=== PATIENT | male | born 1985 | race African-American/Black ===

== ENCOUNTER 2021-12-29 20:54 | Emergency (ER) | payer SELFPAY ==
[~2021-12-29] VITALS: Ht 172.7 cm; Wt 62.8 kg
[2021-12-29] MEDS ORDERED: SUCCINYLCHOLINE 200 MG/10 ML VIAL. ONE ×2 (21:00→23:28)
[2021-12-29] MEDS ORDERED: ROCURONIUM 50 MG/5 ML VIAL. ONE (21:00)
[2021-12-29] MEDS ORDERED: PROPOFOL 10,000 MCG/ML (20ML) VIAL IV ONE (21:00)
--- NOTE | 2021-12-29 21:01 | PHYS DOC ---
Adult General HPI HPI Patient is a 36-year-old male who presents via EMS after being called by PD finding the person outside laying on the ground rolling around yelling and screaming, confused and appearing intoxicated on something. Patient did run from police department and was tackled. On arrival to the ED, patient awake alert in no apparent distress however was talking gibberish in and out of some lucid moments. When asked about drug use he stated that he did all of the drugs today. Review of Systems Review of Systems Review of systems otherwise unremarkable except noted by HPI Physical Exam Physical Exam Constitutional: Well developed, well nourished, patient agitated, yelling, screaming and flailing all extremities, came in in restraints HENT: Contusion over right orbit, bilateral external ears normal, bilateral tympanic membranes normal, oropharynx moist, no oral exudates, nose normal. [] Eyes: Pupils equal and reactive at about 4 mm, some nystagmus likely secondary to ketamine, conjunctiva normal, no discharge. [] Neck: Normal range of motion, no tenderness, supple, no stridor. [] Cardiovascular: Sinus tachycardia Lungs & Thorax: Bilateral breath sounds clear to auscultation, no respiratory distress [] Abdomen: soft, no tenderness, no masses, no pulsatile masses. [] Skin: Warm, dry, no erythema, no rash. [] Back: No obvious injuries Extremities: no cyanosis, no clubbing, ROM intact, no edema. [] Neurologic: Patient is awake, yelling and screaming, flailing all extremities, at times almost appears lucid and will respond when talked to but usually nonsense, no focal deficits noted. [] EKG EKG [] Radiology/Procedures Radiology/Procedures [] Heart Score C/O Chest Pain: No Risk Factors: Risk Factors: DM, Current or recent (<one month) smoker, HTN, HLP, family history of CAD, obesity. Risk Scores: Risk Factors: DM, Current or recent (<one month) smoker, HTN, HLP, family history of CAD, obesity. Course & Med Decision Making Course & Med Decision Making Patient is a 36-year-old male brought in by EMS and PD after being found outside yelling and screaming, rolling around on the ground and acting confused or intoxicated Vital signs notable for sinus tachycardia, hypertension, afebrile, breathing room air. Physical exam noted above. Per family, patient is a heavy alcohol drinker drinking too many to count daily and has been for years and thinks he does some drugs on the side but is not sure. Patient immediately transferred to bed with restraints As Patient Was Yelling, Screaming, Agitated Trying to Grab and Swinging at EMS and Staff. Started using 5 mg doses of Versed in order to calm patient down as there is concern that he was going to hurt himself swinging and flailing all his extremities and the restraints as he was really trying or hurt somebody else. Several doses of Versed with no effect. Switch to ketamine in order to get patient calm enough to allow for medical management but even after several doses of ketamine patient still kicking and screaming and grabbing. Due to concern for patient safety and preventing him from producing self-harm or grabbing part hitting it ED staff patient was intubated for continued medication/medical management. IV fluid resuscitation ongoing, given antibiotics as well as patient technically has an elevated white count, was tachycardic and tachypneic so some sort of infection could be on the differential. Laboratory analysis notable for leukocytosis, elevated creatinine, anion gap. CT of the head and neck with no acute intracranial abnormality showing mildly displaced fracture of the right zygomatic arch and a nondisplaced left nasal bone fracture with no cervical spine osseous abnormalities. Discussed findings with patient's family. Recommended admission to [facility] for continued evaluation and treatment of his possible sepsis, intoxication versus withdrawal and ventilation management. Family grateful, verbalized understanding and agreed with plan of transfer and admission to [place]. Dragon Disclaimer Dragon Disclaimer This electronic medical record was generated, in whole or in part, using a voice recognition dictation system. Departure Departure: Impression: Primary Impression: Altered mental state Additional Impressions: Substance abuse Increased anion gap metabolic acidosis AARON (acute kidney injury) Zygomatic arch fracture Nasal bone fracture Disposition: 02 SHORT TERM HOSPITAL Admitting Physician: Katie Montejo Condition: STABLE Problem Qualifiers FORTINO WILEY MD Dec 29, 2021 21:01
[2021-12-29] MEDS ORDERED: MIDAZOLAM HCL PF 5 MG/5 ML VIAL. IV ONE ×6 (21:15→22:45)
[2021-12-29 21:32] LABS: BASO # 0.1 x10^3/uL (0.0-0.2); BASO % 1 % (0-3); EOS % 0 % (0-3); HEMATOCRIT 34.5 % (39.0-53.0); HEMOGLOBIN 11.7 g/dL (13.0-17.5); LYMPH # 0.6 x10^3/uL (1.0-4.8); LYMPH % 5 % (24-48); MEAN CORPUSCULAR HEMOGLOBIN 32 pg (25-35); MEAN CORPUSCULAR HGB CONC 34 g/dL (31-37); MEAN CORPUSCULAR VOLUME 94 fL (79-100); MONO % 8 % (0-9); NEUT # 10.3 x10^3uL (1.8-7.7); NEUT % 86 % (31-73); PLATELET COUNT 181 x10^3/uL (140-400); RED BLOOD COUNT 3.66 x10^6/uL (4.30-5.70); RED CELL DISTRIBUTION WIDTH 13.9 % (11.5-14.5)
[2021-12-29 21:39] LABS: CALCIUM 9.1 mg/dL (8.5-10.1); CREATININE 1.4 mg/dL (0.7-1.3); GFR 68.6; POTASSIUM 3.4 mmol/L (3.5-5.1)
[2021-12-29 21:50] LABS: AMPHETAMINE/METHAMPHETAMINE NEG (NEG); BARBITURATES NEG (NEG); BENZODIAZEPINES POS (NEG); CANNABINOIDS POS (NEG); COCAINE NEG (NEG); METHADONE NEG (NEG); OPIATES NEG (NEG); PHENCYCLIDINE NEG (NEG)
[2021-12-29] MEDS ORDERED: IV RINGERS SOLUTION,LACTATED 1,000 ML IV ONE ×2 (22:00→23:30)
[2021-12-29] MEDS ORDERED: PROPOFOL 100 ML IV ONE (23:29)
[2021-12-29] MEDS ORDERED: KETAMINE HCL IN NACL, ISO-OSM 50 MG/5 ML SYRINGE IV ONE ×3 (23:30)
[2021-12-29] MEDS ORDERED: PROPOFOL 100 ML IV PRN (23:45)
[2021-12-30] MEDS ORDERED: CEFEPIME HCL 2 GM in IV NORMAL SALINE 100ML 100 ML IV SCH
[2021-12-30] MEDS ORDERED: CEFEPIME HCL 2 GM VIAL IV ONE (00:02)
[2021-12-30] MEDS ORDERED: IV NORMAL SALINE 100ML 100 ML ONE (00:02)
--- NOTE | 2021-12-30 00:02 | RAD ---
EXAM: XR CHEST 1V 12/29/2021 11:54 PM CLINICAL INDICATION: Check tube placement. COMPARISON: None TECHNIQUE: AP view of the chest FINDINGS: The endotracheal tube is 5 cm above the josé. A nasogastric tube enters the stomach and terminates out of view. The heart is normal in size. Lungs are well-expanded and clear. No pleural ef fusion or pneumothorax. IMPRESSION: Appropriate position of endotracheal tube and nasogastric tube. No acute cardiopulmonary abnormality. Electronically signed by: Sparkle Martinez MD (12/30/2021 12:00 AM) [facility]
[2021-12-30 00:20] LABS: CLARITY,URINE CLOUDY; COLOR,URINE AMBER; GLUCOSE,URINE NEG (NEG)
[2021-12-30 00:21] LABS: BACTERIA,URINE MOD /HPF (0-FEW); NITRITE,URINE NEG (NEG); SQUAMOUS EPITHELIAL CELL,UR MANY /LPF
[2021-12-30 00:22] LABS: HYALINE CASTS, URINE MANY /HPF
--- NOTE | 2021-12-30 00:55 | RAD ---
EXAM: CT head and cervical spine without contrast INDICATION: altered mental status, hit head, combative. Post intubation. COMPARISON: None TECHNIQUE: Axial CT imaging through the head and cervical Spine without intravenous contrast. Sagitta l and coronal reformats were obtained. One or more of the following individualized dose reduction techniques were utilized for this examinat ion: 1. Automated exposure control 2. Adjustment of the mA and/or kV according to patient size 3. Use of iterative reconstruction technique. FINDINGS: CT head: The ventricles and sulci are within normal limits. There is no intracranial hemorrhage, acute infarct , or mass lesion. There is a comminuted mildly displaced fracture of the right zygomatic arch. Minima lly displaced left nasal bone fracture. There is right facial and periorbital soft tissue swelling. G lobes and orbits are intact. There is fluid in the nasopharynx and nasal cavity related to intubation . CT cervical spine: No acute fracture. Alignment is normal. Disc spaces are maintained. No evidence of bony canal or fora radha narrowing. An endotracheal tube and nasogastric tube are seen. Lung apices are clear. Preverteb ral soft tissues normal. IMPRESSION: 1. No acute intracranial abnormality. 2. Comminuted mildly displaced fracture of the right zygomatic arch. Right facial and periorbital sof t tissue swelling. 3. Nondisplaced fracture of the left nasal bone. 4. No acute osseous abnormality of the cervical spine. Electronically signed by: Sparkle Martinez MD (12/30/2021 12:52 AM) [facility]
[2021-12-30] MEDS ORDERED: IV RINGERS SOLUTION,LACTATED 1,000 ML IV ONE (01:30)
[2021-12-30 01:41] VITALS: BP 136/87
[2021-12-30 06:32] LABS: BGAS PH 7.33 (7.35-7.46)
--- NOTE | 2021-12-30 06:47 | EKG ---
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
== END 2021-12-30 01:57 | disposition short-term general hospital (02) ==
LOC: ER 20:54
DX: U07.1 COVID-19 (principal); S02.40EA Zygomatic fracture, right side, initial encounter for closed fracture; S02.2XXA Fracture of nasal bones, initial encounter for closed fracture; N17.9 Acute kidney failure, unspecified; E87.2 Acidosis; F19.10 Other psychoactive substance abuse, uncomplicated; R41.82 Altered mental status, unspecified; X58.XXXA Exposure to other specified factors, initial encounter; Y93.89 Activity, other specified; Y92.89 Other specified places as the place of occurrence of the external cause; Y99.8 Other external cause status
CPT/HCPCS: 31500; 36415; 36600; 51702; 70450; 71045; 72125; 80048; 80307; 81001; 82803; 83605; 84484; 85025; 87086; 87426; 93005; 96361; 96365; 96375; 99285; C9803; G0480; J0330; J0692; J2250; J2704; J3010; J7120; U0003; 94002

== ENCOUNTER 2022-01-03 21:13 | Emergency (ER) | payer SELFPAY ==
[~2022-01-03] VITALS: Ht 172.7 cm; Wt 62.8 kg
[2022-01-03] MEDS ORDERED: HALOPERIDOL LACT 5 MG/ML VIAL. IVP ONE (21:30)
--- NOTE | 2022-01-03 21:35 | PHYS DOC ---
Past History Additional Past Medical Histor: KNOWN DRUG AND ETOH ABUSE Past Surgical History: Other Additional Past Surgical Histo: UNKNOWN Alcohol Use: Heavy Adult General Chief Complaint Chief Complaint: ALCOHOL INTOXICATION HPI HPI Patient is a 36-year-old male with a past medical history of significant substance abuse problems from alcohol abuse with history of alcohol withdrawal and psychosis who presents with family for psychosis. Patient was just in the hospital several days ago for similar episodes and was sent home. Per fianc he has been acting crazy all day, and having visual and auditory hallucinations. They thought it was because he had not had any alcohol in a couple of days so they gave him some alcohol yesterday morning thinking it would help, but it did not. States that the psychosis is gotten worse and they do not know what else to do. They are unaware of any other drugs over the last couple of days because they have been with him. Family denies any other traumas, illnesses. States he does not eat very much either. Denies any known ill contacts. Review of Systems Review of Systems Review of systems otherwise unremarkable except noted in HPI Current Medications Current Medications Current Medications Medications (Trade) Dose Ordered Sig/Alanna Start Time Stop Time Status Last Admin Dose Admin Haloperidol Lactate (Haldol) 10 mg 1X ONCE 01/03/22 21:30 01/03/22 21:31 UNV Allergies Allergies Allergies Coded Allergies Type Severity Reaction Last Updated Verified No Known Drug Allergies 12/29/21 No Physical Exam Physical Exam Constitutional: Well developed, well nourished, awake, walking around his room but very agitated HENT: Normocephalic, atraumatic, Eyes: PERRLA, EOMI, right-sided conjunctival hemorrhage, no discharge. [] Neck: Normal range of motion, no tenderness, supple, no stridor. [] Cardiovascular: Sinus tachycardia Lungs & Thorax: Bilateral breath sounds clear to auscultation [] Abdomen: no tenderness, no masses, no pulsatile masses. [] Skin: Warm, dry, no erythema, no rash. [] Back: No tenderness, no CVA tenderness. [] Extremities: No tenderness, no cyanosis, no clubbing, ROM intact, no edema. [] Neurologic: Patient awake, alert to person only, moving all extremities and walking around the room, with no obvious focal neurologic deficit, cranial n erves grossly intact Psychologic: Affect abnormal, judgment abnormal, mood agitated and borderline violent, visual and audio hallucinations, patient stated that he sees needles on his penis and is hearing things, does not endorse SI or HI but does not seem to quite understand. Tg and family member state that he has been like this over the course of the day and they thought it was alcohol withdrawal because he had these before so they have been given him alcohol all day which is only making worse. EKG EKG [] Radiology/Procedures Radiology/Procedures [] Heart Score C/O Chest Pain: N/A Risk Factors: Risk Factors: DM, Current or recent (<one month) smoker, HTN, HLP, family history of CAD, obesity. Risk Scores: Risk Factors: DM, Current or recent (<one month) smoker, HTN, HLP, family history of CAD, obesity. Course & Med Decision Making Course & Med Decision Making Patient is a 36-year-old male with significant substance abuse problems including alcohol abuse with history of alcohol withdrawal, alcoholic hallucinosis and alcoholic withdrawal seizure who presents with family for agitated and violent behavior as well as visual and audio hallucinations Vital signs notable for tachycardia and hypertension. Physical exam noted above. Patient on the monitor with IV access established and given Haldol initially. On reassessment patient still too agitated to complete full medical evaluation. Started on Precedex drip for alcohol withdrawal/alcoholic hallucinosis. Laboratory analysis notable for critical hypokalemia and hypomagnesemia. Both replaced. Given B vitamin complex. Urinalysis nonconcerning. Discussed findings with family and recommended admission for continued evaluation and treatment of acute psychosis with visual and auditory hallucinations and alcohol withdrawal. Family grateful, verbalized understanding and agreed with plan of admission. [] Dragon Disclaimer Dragon Disclaimer This electronic medical record was generated, in whole or in part, using a voice recognition dictation system. Departure Departure: Impression: Primary Impression: Psychotic disorder Additional Impressions: Alcohol withdrawal Hypokalemia Hypomagnesemia Disposition: 02 SHORT TERM HOSPITAL Condition: STABLE Referrals: PCP,NO (PCP) Problem Qualifiers FORTINO WILEY MD Jan 03, 2022 21:35
[2022-01-03] MEDS ORDERED: IV RINGERS SOLUTION,LACTATED 1,000 ML IV ONE (22:00)
[2022-01-03] MEDS ORDERED: ATROPINE 0.5 MG/5 ML DISP.SYRIN. IV PRN (22:00)
[2022-01-03 22:11] LABS: BASO # 0.1 x10^3/uL (0.0-0.2); BASO % 1 % (0-3); EOS % 0 % (0-3); HEMOGLOBIN 10.7 g/dL (13.0-17.5); LYMPH # 1.4 x10^3/uL (1.0-4.8); LYMPH % 11 % (24-48); MEAN CORPUSCULAR HEMOGLOBIN 32 pg (25-35); MEAN CORPUSCULAR HGB CONC 34 g/dL (31-37); MEAN CORPUSCULAR VOLUME 96 fL (79-100); MONO # 1.9 x10^3/uL (0.0-1.1); MONO % 16 % (0-9); NEUT # 8.6 x10^3uL (1.8-7.7); NEUT % 72 % (31-73); PLATELET COUNT 560 x10^3/uL (140-400); RED BLOOD COUNT 3.34 x10^6/uL (4.30-5.70); RED CELL DISTRIBUTION WIDTH 13.7 % (11.5-14.5)
[2022-01-03 22:23] LABS: ACETAMIN < 2.0 mcg/mL (10-30); ALBUMIN 4.5 g/dL (3.4-5.0); ALBUMIN/GLOBULIN RATIO 1.1 (1.0-1.7); CALCIUM 9.4 mg/dL (8.5-10.1); CREATININE 1.2 mg/dL (0.7-1.3); ETHANOL < 10 mg/dL (0-10); MAGNESIUM 1.3 mg/dL (1.8-2.4); TOTAL BILIRUBIN 1.4 mg/dL (0.2-1.0); TOTAL PROTEIN 8.6 g/dL (6.4-8.2)
[2022-01-03 22:24] LABS: SALIC < 2.8 mg/dL (2.8-20.0)
[2022-01-03 22:25] LABS: POTASSIUM 2.3 mmol/L (3.5-5.1)
[2022-01-03] MEDS ORDERED: MAGNESIUM SULFATE 2GM 50 ML IV ONE (23:30)
[2022-01-03] MEDS: DEXMEDETOMIDINE 400 MCG in IV NORMAL SALINE 100ML 96 ML IV PRN (23:35)
[2022-01-04] MEDS: POTASSIUM CHLORIDE 20MEQ 100 ML IV SCH ×2 (01:31→04:17)
[2022-01-04] MEDS ORDERED: MIDAZOLAM HCL PF 5 MG/5 ML VIAL. ONE (01:44)
[2022-01-04 02:04] LABS: BACTERIA,URINE 0 /HPF (0-FEW); BARBITURATES NEG (NEG); BENZODIAZEPINES NEG (NEG); CANNABINOIDS NEG (NEG); CLARITY,URINE CLEAR; COCAINE NEG (NEG); COLOR,URINE YELLOW; GLUCOSE,URINE NEG (NEG); METHADONE NEG (NEG); NITRITE,URINE NEG (NEG); OPIATES POS (NEG); PHENCYCLIDINE NEG (NEG); RBC,URINE 0 /HPF (0-2); SQUAMOUS EPITHELIAL CELL,UR OCC /LPF; WBC,URINE OCC /HPF (0-4)
[2022-01-04 02:07] LABS: AMPHETAMINE/METHAMPHETAMINE NEG (NEG)
[2022-01-04] MEDS ORDERED: IV RINGERS SOLUTION,LACTATED 1,000 ML IV ONE (02:15)
[2022-01-04] MEDS ORDERED: THIAMINE IM 200 MG/2 ML VIAL. IM ONE (02:45)
[2022-01-04] MEDS ORDERED: FOLIC ACID 1 MG TABLET PO ONE (02:45)
[2022-01-04] MEDS ORDERED: CYANOCOBALAMIN (VITAMIN B-12) 1,000 MCG/ML VIAL. IM ONE (02:45)
--- NOTE | 2022-01-04 04:04 | EKG ---
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
[2022-01-04] MEDS ORDERED: POTASSIUM CHLORIDE 20 MEQ TABLET.ER. PO ONE (04:30)
[2022-01-04] MEDS ORDERED: MIDAZOLAM HCL PF 5 MG/5 ML VIAL. IV ONE ×2 (05:00)
[2022-01-04 07:25] VITALS: BP 122/83
[2022-01-04] MEDS: DEXMEDETOMIDINE 400 MCG in IV NORMAL SALINE 100ML 96 ML IV PRN (07:56)
== END 2022-01-04 08:05 | disposition short-term general hospital (02) ==
LOC: ER 21:13
DX: F29 Unspecified psychosis not due to a substance or known physiological condition (principal); F10.239 Alcohol dependence with withdrawal, unspecified; E87.6 Hypokalemia; E83.42 Hypomagnesemia; Y90.0 Blood alcohol level of less than 20 mg/100 ml
CPT/HCPCS: 36415; 80053; 80307; 80329; 81001; 83735; 85025; 93005; 96361; 96365; 96366; 96367; 96368; 96372; 96374; 96375; 96376; 99285; G0480; J1630; J2250; J3420; J3475; J3480; J3490; J7120